=== PATIENT | female | born 1940 | race Hispanic/Latino ===

== ENCOUNTER 2021-10-26 10:26 | Inpatient (IN) | payer OTHER ==
[~2021-10-26] VITALS: Ht 149.9 cm; Wt 72.6 kg
[2021-10-26] MEDS ORDERED: SODIUM CHLORIDE FLUSH 10 ML SYR IV PRN (11:00)
[2021-10-26 11:29] LABS: BASOPHILS % 0.3 % (0.0-1.0); EOSINOPHILS % 0.1 % (0.0-6.0); HEMATOCRIT 36.6 % (34.2-44.1); LYMPHOCYTES # (AUTO) 0.8 (1.0-3.2); MEAN CORPUSCULAR HEMOGLOBIN 29.8 pg (28-32); MEAN CORPUSCULAR HGB CONC 32.8 g/dL (31-35); MEAN CORPUSCULAR VOLUME 90.8 fL (81-99); MONOCYTES # (AUTO) 0.4 (0.2-0.8); MONOCYTES % 3.2 % (4.4-11.3); NEUTROPHILS # (AUTO) 12.5 (2.1-6.9); PLATELET COUNT 229 x10e3/uL (140-360); RED BLOOD COUNT 4.03 x10e6/uL (3.6-5.1); RED CELL DISTRIBUTION WIDTH 13.6 % (11.7-14.4)
[2021-10-26 11:52] LABS: ALBUMIN/GLOBULIN RATIO 0.8 (0.8-2.0); ANION GAP 16.5 mmol/L (8-16); CALCIUM 8.9 mg/dL (8.4-10.2); CREATININE, SERUM 0.93 mg/dL (0.57-1.11); POTASSIUM 3.5 mmol/L (3.5-5.1)
[2021-10-26 11:56] LABS: INR 0.98; PROTHROMBIN TIME 13.9 seconds (11.9-14.5)
[2021-10-26 11:57] LABS: PARTIAL THROMBOPLASTIN TIME 29.4 seconds (23.8-35.5)
[2021-10-26 12:25] LABS: CLARITY,URINE CLEAR (CLEAR); COLOR,URINE YELLOW (YELLOW); KETONES,URINE 1+ (NEGATIVE); LEUKOCYTE ESTERASE ,URINE NEGATIVE (NEGATIVE); NITRITE,URINE NEGATIVE (NEGATIVE); PROTEIN,URINE DIPSTICK >=300 (NEGATIVE); URINE UROBILINOGEN 1 mg/dL (0.2 - 1)
[2021-10-26 12:45] LABS: BACTERIA,URINE FEW /HPF; EPITHELIAL CELLS,URINE FEW /LPF; MUCUS,URINE MODERATE (RARE); RBC,URINE 0-5 /HPF (0-5); WBC,URINE (MAN) 0-5 /HPF (0-5)
[2021-10-26] MEDS ORDERED: Morphine 2mg Syringe 2 MG/ML SYR IV PRN (14:00)
[2021-10-26] MEDS ORDERED: ONDANSETRON HCL INJ 2MG/ML 2ML 2 MG/ML VIAL IV PRN (14:00)
[2021-10-26] MEDS ORDERED: DEXTROSE 50% SYRINGE 50 ML IV PRN ×2 (14:00→18:30)
[2021-10-26] MEDS ORDERED: VITAMIN D32400 UNIT/ (14:50)
[2021-10-26] MEDS ORDERED: NOVOLOG100 UNIT/1 SC ×2 (14:50)
[2021-10-26] MEDS ORDERED: TRAZODONE HCL50 MG PO (14:50)
[2021-10-26] MEDS ORDERED: RAMIPRIL5 MG PO (14:50)
[2021-10-26] MEDS ORDERED: ARICEPT5 MG PO (14:50)
[2021-10-26] MEDS ORDERED: VITAMIN B-121000 MCG PO (14:50)
[2021-10-26] MEDS ORDERED: NAMENDA10 MG PO (14:50)
[2021-10-26 16:10] VITALS: BP 144/61
[2021-10-26] MEDS ORDERED: NOVOLIN N100 UNIT/1 SQ ×2 (18:06)
[2021-10-26 18:17] VITALS: BP 145/61
[2021-10-26] MEDS ORDERED: ACETAMINOPHEN 325 MG TAB PO PRN (18:30)
[2021-10-26 18:35] VITALS: BP 144/61
[2021-10-26 20:00] VITALS: BP 154/77
[2021-10-26] MEDS: NPH, HUMAN INSULIN ISOPHANE 100 UNIT/1 ML 3ML VIAL SQ SCH (20:49)
[2021-10-26] MEDS: DONEPEZIL HCL 5 MG TAB PO SCH (20:50)
[2021-10-26] MEDS: TRAZODONE HCL 50 MG TAB PO SCH (20:50)
[2021-10-26] MEDS: INSULIN LISPRO 100 UNIT/1 ML 3ML VIAL SQ SCH (20:54)
[2021-10-26 21:12] VITALS: BP 154/77
[2021-10-27] VITALS (9 sets, daily range): BP systolic 52–168; BP diastolic 40–69
[2021-10-27 06:57] LABS: BASOPHILS % 0.3 % (0.0-1.0); EOSINOPHILS # (AUTO) 0.1 (0.0-0.4); EOSINOPHILS % 2.1 % (0.0-6.0); HEMATOCRIT 30.7 % (34.2-44.1); HEMOGLOBIN 10.1 g/dL (12.0-16.0); LYMPHOCYTES # (AUTO) 1.4 (1.0-3.2); LYMPHOCYTES % 24.1 % (18.0-39.1); MEAN CORPUSCULAR HEMOGLOBIN 30.2 pg (28-32); MEAN CORPUSCULAR HGB CONC 32.9 g/dL (31-35); MEAN CORPUSCULAR VOLUME 91.9 fL (81-99); MONOCYTES # (AUTO) 0.5 (0.2-0.8); MONOCYTES % 9.1 % (4.4-11.3); NEUTROPHILS # (AUTO) 3.7 (2.1-6.9); NEUTROPHILS % 64.2 % (38.7-80.0); PLATELET COUNT 196 x10e3/uL (140-360); RED BLOOD COUNT 3.34 x10e6/uL (3.6-5.1)
[2021-10-27 06:59] LABS: ANION GAP 11.8 mmol/L (8-16); CALCIUM 8.5 mg/dL (8.4-10.2); CREATININE, SERUM 1.07 mg/dL (0.57-1.11); POTASSIUM 3.8 mmol/L (3.5-5.1)
[2021-10-27] MEDS: INSULIN LISPRO 100 UNIT/1 ML 3ML VIAL SQ SCH ×4 (07:30→21:00)
[2021-10-27] MEDS: CHOLECALCIFEROL 1,000 UNIT TAB PO SCH (09:14)
[2021-10-27] MEDS: CYANOCOBALAMIN 1,000 MCG TAB PO SCH (09:15)
[2021-10-27] MEDS: MEMANTINE 10 MG TAB PO SCH (09:16)
[2021-10-27] MEDS: RAMIPRIL 5 MG CAP PO SCH (09:16)
[2021-10-27] MEDS ORDERED: SODIUM CHLORIDE 0.9% 1000ML 1,000 ML, SODIUM CHLORIDE 0.9% 1000ML 1,000 ML IV SCH ×2 (18:30)
[2021-10-27] MEDS ORDERED: SODIUM CHLORIDE 0.9% 1000ML 1,000 ML IV ONE (18:45)
[2021-10-27] MEDS ORDERED: SODIUM CHLORIDE 0.9% 1000ML 1,000 ML ONE (18:58)
[2021-10-27] MEDS: TRAZODONE HCL 50 MG TAB PO SCH (21:55)
[2021-10-27] MEDS: DONEPEZIL HCL 5 MG TAB PO SCH (21:55)
[2021-10-27] MEDS: NPH, HUMAN INSULIN ISOPHANE 100 UNIT/1 ML 3ML VIAL SQ SCH (22:12)
[2021-10-28] VITALS (8 sets, daily range): BP systolic 88–184; BP diastolic 42–91
[2021-10-28] MEDS ORDERED: SODIUM CHLORIDE 0.9% 1000ML 1,000 ML IV ONE (01:20)
[2021-10-28] MEDS: INSULIN LISPRO 100 UNIT/1 ML 3ML VIAL SQ SCH ×4 (08:30→21:15)
[2021-10-28] MEDS: CHOLECALCIFEROL 1,000 UNIT TAB PO SCH (09:40)
[2021-10-28] MEDS: CYANOCOBALAMIN 1,000 MCG TAB PO SCH (09:40)
[2021-10-28] MEDS: MEMANTINE 10 MG TAB PO SCH (09:40)
[2021-10-28] MEDS: RAMIPRIL 5 MG CAP PO SCH (09:40)
[2021-10-28] MEDS: SODIUM CHLORIDE 0.9% 1000ML 1,000 ML IV SCH ×2 (13:00→22:42)
[2021-10-28] MEDS: TRAZODONE HCL 50 MG TAB PO SCH (21:11)
[2021-10-28] MEDS: DONEPEZIL HCL 5 MG TAB PO SCH (21:11)
[2021-10-28] MEDS: NPH, HUMAN INSULIN ISOPHANE 100 UNIT/1 ML 3ML VIAL SQ SCH (21:16)
[2021-10-29] VITALS (8 sets, daily range): BP systolic 126–183; BP diastolic 49–83
[2021-10-29] MEDS ORDERED: METOCLOPRAMIDE HCL 10 MG/2ML VIAL IV ONE (01:00)
[2021-10-29] MEDS: METOCLOPRAMIDE HCL 10 MG/2ML VIAL IV SCH ×3 (06:20→17:01)
[2021-10-29 06:46] LABS: BASOPHILS % 0.3 % (0.0-1.0); EOSINOPHILS # (AUTO) 0.1 (0.0-0.4); EOSINOPHILS % 1.8 % (0.0-6.0); HEMATOCRIT 30.4 % (34.2-44.1); LYMPHOCYTES # (AUTO) 1.2 (1.0-3.2); LYMPHOCYTES % 19.5 % (18.0-39.1); MEAN CORPUSCULAR HEMOGLOBIN 30.2 pg (28-32); MEAN CORPUSCULAR HGB CONC 32.9 g/dL (31-35); MEAN CORPUSCULAR VOLUME 91.8 fL (81-99); MONOCYTES # (AUTO) 0.4 (0.2-0.8); MONOCYTES % 5.8 % (4.4-11.3); NEUTROPHILS # (AUTO) 4.4 (2.1-6.9); NEUTROPHILS % 72.4 % (38.7-80.0); PLATELET COUNT 187 x10e3/uL (140-360); RED BLOOD COUNT 3.31 x10e6/uL (3.6-5.1); RED CELL DISTRIBUTION WIDTH 13.2 % (11.7-14.4)
[2021-10-29] MEDS: INSULIN LISPRO 100 UNIT/1 ML 3ML VIAL SQ SCH ×4 (07:30→20:34)
[2021-10-29 07:40] LABS: ANION GAP 10.5 mmol/L (8-16); CALCIUM 8.1 mg/dL (8.4-10.2); CREATININE, SERUM 0.62 mg/dL (0.57-1.11); POTASSIUM 3.5 mmol/L (3.5-5.1)
[2021-10-29] MEDS: CHOLECALCIFEROL 1,000 UNIT TAB PO SCH (07:51)
[2021-10-29] MEDS: CYANOCOBALAMIN 1,000 MCG TAB PO SCH (07:51)
[2021-10-29] MEDS: MEMANTINE 10 MG TAB PO SCH (07:51)
[2021-10-29 08:01] LABS: % IRON SATURATION 15 % (15-50); IRON 41 ug/dL (50-170); TOTAL IRON BINDING CAPACITY 266 ug/dL (261-478); TRANSFERRIN 190 mg/dL (180-382)
[2021-10-29] MEDS: SODIUM CHLORIDE 0.9% 1000ML 1,000 ML IV SCH (08:37)
[2021-10-29] MEDS ORDERED: PROPOFOL IV EMULSION 10 MG/ML 20 ML VIAL ONE (11:57)
[2021-10-29] MEDS: DONEPEZIL HCL 5 MG TAB PO SCH (20:33)
[2021-10-29] MEDS: TRAZODONE HCL 50 MG TAB PO SCH (20:33)
[2021-10-29] MEDS: NPH, HUMAN INSULIN ISOPHANE 100 UNIT/1 ML 3ML VIAL SQ SCH (20:33)
[2021-10-30] VITALS (9 sets, daily range): BP systolic 107–176; BP diastolic 50–68
[2021-10-30] MEDS: METOCLOPRAMIDE HCL 10 MG/2ML VIAL IV SCH ×4 (06:09→18:06)
[2021-10-30] MEDS: INSULIN LISPRO 100 UNIT/1 ML 3ML VIAL SQ SCH ×4 (07:30→21:03)
[2021-10-30] MEDS: CHOLECALCIFEROL 1,000 UNIT TAB PO SCH (07:44)
[2021-10-30] MEDS: MEMANTINE 10 MG TAB PO SCH (07:44)
[2021-10-30] MEDS: CYANOCOBALAMIN 1,000 MCG TAB PO SCH (07:44)
[2021-10-30] MEDS ORDERED: ROCURONIUM BROMIDE 10 MG/ML 5ML VIAL IV ONE (11:51)
[2021-10-30] MEDS ORDERED: POVIDONE IODINE 0.05% 0.05 % ML PO ONE (11:51)
[2021-10-30] MEDS ORDERED: SEVOFLURANE INHAL SOLN 250 ML PEN BTL ONE (11:51)
[2021-10-30] MEDS ORDERED: ONDANSETRON HCL INJ 2MG/ML 2ML 2 MG/ML VIAL ONE (11:51)
[2021-10-30] MEDS ORDERED: LIDOCAINE HCL 2% LOCAL INJ 5 ML SDV VIAL INJ ONE (11:51)
[2021-10-30] MEDS ORDERED: EPHEDRINE SULFATE INJ 50 MG/ML VIAL ONE (11:51)
[2021-10-30] MEDS ORDERED: DEXAMETHASONE SOD PHOS INJ 4 MG/ML SDV ONE (11:51)
[2021-10-30] MEDS ORDERED: PROPOFOL IV EMULSION 10 MG/ML 20 ML VIAL ONE (11:51)
[2021-10-30] MEDS ORDERED: GLYCOPYRROLATE INJ 0.2 MG/ML VIAL ONE (11:51)
[2021-10-30] MEDS ORDERED: BUPIVACAINE HCL 0.25% 10ML MPF VIAL INJ ONE (12:09)
[2021-10-30] MEDS ORDERED: FENTANYL CITRATE/PF 100MCG/2 ML INJ ONE (12:24)
[2021-10-30] MEDS ORDERED: DOCUSATE SODIUM 100 MG CAP PO PRN (13:30)
[2021-10-30] MEDS ORDERED: KETOROLAC TROMETHAMINE 30 MG/ML VIAL IV PRN (13:30)
[2021-10-30] MEDS ORDERED: ONDANSETRON HCL INJ 2MG/ML 2ML 2 MG/ML VIAL IV PRN (13:30)
[2021-10-30] MEDS ORDERED: HYDROCODONE/APAP 5MG-325MG TAB PO PRN (13:30)
[2021-10-30] MEDS ORDERED: DIPHENHYDRAMINE HCL INJ 50 MG/ML VIAL IV PRN (13:30)
[2021-10-30] MEDS ORDERED: ACETAMINOPHEN 650 MG SUPP PR PRN (13:30)
[2021-10-30] MEDS ORDERED: ACETAMINOPHEN 1000 MG/100 ML IV PRN (15:00)
[2021-10-30] MEDS: CELECOXIB 100 MG CAP PO SCH (16:46)
[2021-10-30] MEDS: SODIUM CHLORIDE 0.9% 1000ML 1,000 ML IV SCH ×2 (18:07→21:54)
[2021-10-30] MEDS: TRAZODONE HCL 50 MG TAB PO SCH (21:00)
[2021-10-30] MEDS: DONEPEZIL HCL 5 MG TAB PO SCH (21:00)
[2021-10-30] MEDS: NPH, HUMAN INSULIN ISOPHANE 100 UNIT/1 ML 3ML VIAL SQ SCH (21:03)
[2021-10-31] VITALS (11 sets, daily range): BP systolic 87–147; BP diastolic 41–64
[2021-10-31] MEDS: METOCLOPRAMIDE HCL 10 MG/2ML VIAL IV SCH ×5 (00:58→23:46)
[2021-10-31 08:28] LABS: EOSINOPHILS % 0.1 % (0.0-6.0); HEMATOCRIT 25.5 % (34.2-44.1); HEMOGLOBIN 8.3 g/dL (12.0-16.0); LYMPHOCYTES # (AUTO) 1.1 (1.0-3.2); LYMPHOCYTES % 11.8 % (18.0-39.1); MEAN CORPUSCULAR HEMOGLOBIN 29.9 pg (28-32); MEAN CORPUSCULAR HGB CONC 32.5 g/dL (31-35); MEAN CORPUSCULAR VOLUME 91.7 fL (81-99); MONOCYTES # (AUTO) 0.7 (0.2-0.8); MONOCYTES % 7.9 % (4.4-11.3); NEUTROPHILS # (AUTO) 7.2 (2.1-6.9); PLATELET COUNT 190 x10e3/uL (140-360); RED BLOOD COUNT 2.78 x10e6/uL (3.6-5.1); RED CELL DISTRIBUTION WIDTH 13.8 % (11.7-14.4)
[2021-10-31 08:45] LABS: ANION GAP 9.7 mmol/L (8-16); CALCIUM 7.8 mg/dL (8.4-10.2); CREATININE, SERUM 1.24 mg/dL (0.57-1.11); POTASSIUM 3.7 mmol/L (3.5-5.1)
[2021-10-31] MEDS: INSULIN LISPRO 100 UNIT/1 ML 3ML VIAL SQ SCH ×4 (11:59→21:16)
[2021-10-31] MEDS: CELECOXIB 100 MG CAP PO SCH ×2 (12:07→18:21)
[2021-10-31] MEDS: IRON-VITAMIN-MINERAL CAPSULE PO SCH (12:08)
[2021-10-31] MEDS: MEMANTINE 10 MG TAB PO SCH (12:09)
[2021-10-31] MEDS: CYANOCOBALAMIN 1,000 MCG TAB PO SCH (12:09)
[2021-10-31] MEDS: SODIUM CHLORIDE 0.9% 1000ML 1,000 ML IV SCH ×2 (12:11→19:30)
[2021-10-31] MEDS: CHOLECALCIFEROL 1,000 UNIT TAB PO SCH (12:11)
[2021-10-31] MEDS: MIDODRINE 2.5 MG TAB PO SCH ×2 (12:44→16:43)
[2021-10-31] MEDS: NPH, HUMAN INSULIN ISOPHANE 100 UNIT/1 ML 3ML VIAL SQ SCH (21:16)
[2021-10-31] MEDS: DONEPEZIL HCL 5 MG TAB PO SCH (21:17)
[2021-10-31] MEDS: TRAZODONE HCL 50 MG TAB PO SCH (21:17)
[2021-11-01] VITALS (7 sets, daily range): BP systolic 118–159; BP diastolic 43–85
[2021-11-01] MEDS: QUETIAPINE FUMARATE 25 MG TAB PO SCH ×2 (02:39→23:13)
[2021-11-01 04:56] LABS: BASOPHILS % 0.3 % (0.0-1.0); EOSINOPHILS # (AUTO) 0.2 (0.0-0.4); EOSINOPHILS % 2.7 % (0.0-6.0); HEMATOCRIT 23.9 % (34.2-44.1); HEMOGLOBIN 7.8 g/dL (12.0-16.0); LYMPHOCYTES # (AUTO) 1.2 (1.0-3.2); LYMPHOCYTES % 16.8 % (18.0-39.1); MEAN CORPUSCULAR HGB CONC 32.6 g/dL (31-35); MEAN CORPUSCULAR VOLUME 91.9 fL (81-99); MONOCYTES # (AUTO) 0.4 (0.2-0.8); MONOCYTES % 5.6 % (4.4-11.3); NEUTROPHILS # (AUTO) 5.5 (2.1-6.9); NEUTROPHILS % 74.2 % (38.7-80.0); PLATELET COUNT 168 x10e3/uL (140-360); RED CELL DISTRIBUTION WIDTH 13.6 % (11.7-14.4)
[2021-11-01 05:19] LABS: CALCIUM 7.3 mg/dL (8.4-10.2); CREATININE, SERUM 1.07 mg/dL (0.57-1.11)
[2021-11-01] MEDS: METOCLOPRAMIDE HCL 10 MG/2ML VIAL IV SCH ×3 (06:00→18:36)
[2021-11-01] MEDS: INSULIN LISPRO 100 UNIT/1 ML 3ML VIAL SQ SCH ×4 (07:30→23:12)
[2021-11-01] MEDS: PANTOPRAZOLE SOD 40 MG TABEC PO SCH (08:51)
[2021-11-01] MEDS: CELECOXIB 100 MG CAP PO SCH ×2 (08:53→18:36)
[2021-11-01] MEDS: MIDODRINE 2.5 MG TAB PO SCH ×3 (08:53→16:25)
[2021-11-01] MEDS: IRON-VITAMIN-MINERAL CAPSULE PO SCH (08:53)
[2021-11-01] MEDS: MEMANTINE 10 MG TAB PO SCH (08:53)
[2021-11-01] MEDS: CYANOCOBALAMIN 1,000 MCG TAB PO SCH (08:54)
[2021-11-01] MEDS: CHOLECALCIFEROL 1,000 UNIT TAB PO SCH (08:55)
[2021-11-01] MEDS ORDERED: ONDANSETRON HCL 4 MG ORAL DISINTEGRATING TAB PO PRN (14:30)
[2021-11-01] MEDS: IRON SUCROSE 100 MG in SODIUM CHLORIDE 0.9% 100 ML 100 ML IV SCH (18:36)
[2021-11-01] MEDS: NPH, HUMAN INSULIN ISOPHANE 100 UNIT/1 ML 3ML VIAL SQ SCH (23:12)
[2021-11-01] MEDS: TRAZODONE HCL 50 MG TAB PO SCH (23:13)
[2021-11-01] MEDS: DONEPEZIL HCL 5 MG TAB PO SCH (23:13)
[2021-11-02 00:34] VITALS: BP 156/61
[2021-11-02 04:00] VITALS: BP 119/50
[2021-11-02 06:00] LABS: BASOPHILS % 0.6 % (0.0-1.0); EOSINOPHILS # (AUTO) 0.3 (0.0-0.4); EOSINOPHILS % 6.3 % (0.0-6.0); HEMATOCRIT 23.4 % (34.2-44.1); HEMOGLOBIN 7.7 g/dL (12.0-16.0); LYMPHOCYTES # (AUTO) 1.1 (1.0-3.2); LYMPHOCYTES % 20.7 % (18.0-39.1); MEAN CORPUSCULAR HEMOGLOBIN 30.2 pg (28-32); MEAN CORPUSCULAR HGB CONC 32.9 g/dL (31-35); MEAN CORPUSCULAR VOLUME 91.8 fL (81-99); MONOCYTES # (AUTO) 0.4 (0.2-0.8); MONOCYTES % 7.4 % (4.4-11.3); NEUTROPHILS # (AUTO) 3.3 (2.1-6.9); NEUTROPHILS % 64.8 % (38.7-80.0); PLATELET COUNT 184 x10e3/uL (140-360); RED BLOOD COUNT 2.55 x10e6/uL (3.6-5.1); RED CELL DISTRIBUTION WIDTH 13.9 % (11.7-14.4)
[2021-11-02] MEDS: METOCLOPRAMIDE HCL 10 MG/2ML VIAL IV SCH ×2 (06:00)
[2021-11-02] MEDS: INSULIN LISPRO 100 UNIT/1 ML 3ML VIAL SQ SCH ×2 (07:30→11:30)
[2021-11-02 07:42] VITALS: BP 106/47
[2021-11-02 09:00] VITALS: BP 106/47
[2021-11-02] MEDS: PANTOPRAZOLE SOD 40 MG TABEC PO SCH (09:35)
[2021-11-02] MEDS: MIDODRINE 2.5 MG TAB PO SCH ×2 (09:35→13:12)
[2021-11-02] MEDS: IRON-VITAMIN-MINERAL CAPSULE PO SCH (09:36)
[2021-11-02] MEDS: MEMANTINE 10 MG TAB PO SCH (09:36)
[2021-11-02] MEDS: CELECOXIB 100 MG CAP PO SCH (09:36)
[2021-11-02] MEDS: CYANOCOBALAMIN 1,000 MCG TAB PO SCH (09:37)
[2021-11-02] MEDS: CHOLECALCIFEROL 1,000 UNIT TAB PO SCH (09:38)
[2021-11-02] MEDS: IRON SUCROSE 100 MG in SODIUM CHLORIDE 0.9% 100 ML 100 ML IV SCH (09:38)
[2021-11-02 11:43] VITALS: BP 158/52
[2021-11-02] MEDS ORDERED: METOCLOPRAMIDE HCL 10 MG TAB PO SCH (12:15)
== END 2021-11-02 16:02 | DRG 493 ==
LOC: ER 10:48 → ERHOLD 13:53 → MED/SURG2 16:05
PROVIDERS: ADMIT Internal Medicine; ATTEND Internal Medicine
PROC: 0DB48ZX Excision of Esophagogastric Junction, Via Natural or Artificial Opening Endoscopic, Diagnostic (ICD-10-PCS; 2021-10-29)
PROC: 0DB78ZX Excision of Stomach, Pylorus, Via Natural or Artificial Opening Endoscopic, Diagnostic (ICD-10-PCS; 2021-10-29)
PROC: 0DB68ZX Excision of Stomach, Via Natural or Artificial Opening Endoscopic, Diagnostic (ICD-10-PCS; 2021-10-29)
PROC: 0PSF06Z Reposition Right Humeral Shaft with Intramedullary Internal Fixation Device, Open Approach (ICD-10-PCS; principal; 2021-10-30 12:14)
DX: M80.021A Age-related osteoporosis with current pathological fracture, right humerus, initial encounter for fracture (principal); S22.41XA Multiple fractures of ribs, right side, initial encounter for closed fracture; N17.9 Acute kidney failure, unspecified; G30.9 Alzheimer's disease, unspecified; F02.80 Dementia in other diseases classified elsewhere, unspecified severity, without behavioral disturbance, psychotic disturbance, mood disturbance, and anxiety; E11.9 Type 2 diabetes mellitus without complications; I10 Essential (primary) hypertension; K20.90 Esophagitis, unspecified without bleeding; K29.70 Gastritis, unspecified, without bleeding; K44.9 Diaphragmatic hernia without obstruction or gangrene; W19.XXXA Unspecified fall, initial encounter; Z86.73 Personal history of transient ischemic attack (TIA), and cerebral infarction without residual deficits; Z96.642 Presence of left artificial hip joint; I95.1 Orthostatic hypotension; I70.0 Atherosclerosis of aorta; R33.9 Retention of urine, unspecified; N39.46 Mixed incontinence; E87.6 Hypokalemia; E83.51 Hypocalcemia; E66.9 Obesity, unspecified; Z68.32 Body mass index [BMI] 32.0-32.9, adult; Z20.822 Contact with and (suspected) exposure to COVID-19
CPT/HCPCS: 36415; 43235; 70450; 71045; 72125; 73521; 76000; 80048; 80053; 81001; 82533; 82607; 82746; 82948; 83540; 84466; 84484; 85025; 85610; 85730; 88304; 88305; 88312; 93005; 93306; 94799; 96360; 96372; 97139; 99251; 99284; J0690; J1100; J1756; J2001; J2270; J2405; J2765; J3010; J7030; J7050; U0002

== ENCOUNTER 2022-01-05 17:45 | Emergency (ER) | payer OTHER ==
[~2022-01-05] VITALS: Ht 149.9 cm; Wt 72.6 kg
[~2022-01-05 17:45] MED LIST: ARICEPT5 MG PO; NAMENDA10 MG PO; NOVOLIN N100 UNIT/1 SQ; NOVOLOG100 UNIT/1 SC; RAMIPRIL5 MG PO; TRAZODONE HCL50 MG PO; VITAMIN B-121000 MCG PO; VITAMIN D32400 UNIT/
== END 2022-01-05 18:44 | disposition home or self-care (01) ==
LOC: ER 17:52
DX: Z46.6 Encounter for fitting and adjustment of urinary device (principal); R33.9 Retention of urine, unspecified; I10 Essential (primary) hypertension; E11.9 Type 2 diabetes mellitus without complications; G30.9 Alzheimer's disease, unspecified; F02.80 Dementia in other diseases classified elsewhere, unspecified severity, without behavioral disturbance, psychotic disturbance, mood disturbance, and anxiety
CPT/HCPCS: 51700; 99282